=== PATIENT | male | born 1955 | race Caucasian/White ===

== ENCOUNTER 2021-11-03 18:21 | Emergency (ER) | payer MEDICAID ==
[~2021-11-03] VITALS: Ht 160 cm; Wt 74.0 kg
[2021-11-03] MEDS ORDERED: HYDROCODONE/ACETAMINOPHEN 5/325MG TABLET PO ONE (18:45)
[2021-11-03] MEDS ORDERED: TC1U15 TP (19:15)
[2021-11-03] MEDS ORDERED: VALA10002 MT (19:15)
[2021-11-03] MEDS ORDERED: HYDR-4001 MT (19:15)
[2021-11-03] MEDS ORDERED: IBUP-2029 MT (19:15)
[2021-11-03 21:04] VITALS: BP 152/84
== END 2021-11-03 21:08 | disposition home or self-care (01) ==
LOC: ER 18:21
DX: B02.9 Zoster without complications (principal); R21 Rash and other nonspecific skin eruption; Z79.899 Other long term (current) drug therapy
CPT/HCPCS: 99283

== ENCOUNTER 2023-07-03 17:36 | Emergency (ER) | payer MEDICAID, OTHER ==
[~2023-07-03] VITALS: Ht 170.2 cm; Wt 72.3 kg
[~2023-07-03 17:36] MED LIST: IBUP-2029 MT; TC1U15 TP; VALA10002 MT
[2023-07-03 17:50] VITALS: O2SAT 100
[2023-07-03 18:23] LABS: BASOPHILS % 0.5 % (0.0-2.0); EOSINOPHILS % 1.4 % (0.0-5.0); HEMATOCRIT. 46.3 % (42.0-52.0); HEMOGLOBIN. 15.9 g/dL (14.0-18.0); LYMPHOCYTES % 22.7 % (20.0-50.0); MEAN CORPUSCULAR HEMOGLOBIN 31.8 pg (28.0-32.0); MEAN CORPUSCULAR HGB CONC 34.3 g/dL (31.0-37.0); MEAN CORPUSCULAR VOLUME 92.8 fL (80.0-94.0); MEAN PLATELET VOLUME 7.9 fl (7.4-10.4); MONOCYTES % 10.6 % (2.0-8.0); NEUTROPHILS % 64.8 % (40.0-76.0); PLATELET 214 x1000/uL (130-400); RED BLOOD CELL COUNT 4.99 mill/uL (4.7-6.1); RED CELL DISTRIBUTION WIDTH 13.8 % (11.6-14.6); WHITE BLOOD COUNT 5.8 x1000/uL (4.5-11.0)
[2023-07-03 18:32] LABS: CHLORIDE 106 mEq/L (98-107); INDEX HEMOLYSI 1 (1-3); INDEX ICTERIC 1 (1-4); INDEX LIPEMIC 1 (1-3); POTASSIUM 3.8 mEq/L (3.5-5.1); SODIUM 140 mEq/L (136-145)
[2023-07-03 18:43] LABS: ALANINE AMINOTRANSFERASE 19 IU/L (13-61); ALBUMIN 3.5 g/dL (3.4-5.0); ASPARTATE AMINOTRANSFERASE 16 IU/L (15-37); BILIRUBIN TOTAL 0.5 mg/dL (0.1-1.0); CALCIUM 9.2 mg/dL (8.5-10.1); CARBON DIOXIDE 29 mEq/L (21-32); CREATININE 0.9 mg/dL (0.6-1.3); GLUCOSE 134 mg/dL (70-105); PROTEIN TOTAL 7.1 g/dL (6.0-8.3); UREA NITROGEN BLOOD 17 mg/dL (7-21)
[2023-07-03 23:18] VITALS: BP 133/84
[2023-07-03] MEDS: KETOROLAC 30MG/ML VIAL IM NR (23:18)
[2023-07-03] MEDS: METOCLOPRAMIDE HCL 10MG/2ML VIAL IM NR (23:18)
[2023-07-03 23:29] LABS: CLARITY URINE CLEAR (CLEAR); COLOR URINE YELLOW (YELLOW); GLUCOSE URINE NEGATIVE (NEGATIVE); KETONES URINE TRACE (NEGATIVE); LEUKOCYTE ESTERASE URINE NEGATIVE (NEGATIVE); NITRITE URINE NEGATIVE (NEGATIVE); OCCULT BLOOD URINE NEGATIVE (NEGATIVE); PH URINE 5.5 (4.5-8.0); PROTEIN URINE NEGATIVE (NEGATIVE); SPECIFIC GRAVITY URINE 1.022 (1.005-1.030)
[2023-07-03] MEDS ORDERED: ONDA4TAB50 PO (23:49)
[2023-07-03] MEDS ORDERED: NAPR-681 PO (23:49)
[2023-07-03 23:57] VITALS: PULSE 62; RESP 18; TEMP 98.7
== END 2023-07-04 00:07 | disposition home or self-care (01) ==
LOC: ER 17:36
DX: R51.9 Headache, unspecified (principal); K29.00 Acute gastritis without bleeding; M25.512 Pain in left shoulder
CPT/HCPCS: 80053; 81003; 85025; 36415; 73030; 70450; 96372; 99285; J1885; J2765; Z7610